=== PATIENT | male | born 1955 | race Two or more races ===

== ENCOUNTER 2022-08-01 11:47 | Outpatient (CLI) | payer OTHER | END 2022-08-01 11:55 | disposition home or self-care (01) | LOC: RAD 11:47 | PROVIDERS: ATTEND Orthopaedic Surgery | DX: M25.551 Pain in right hip (principal); M25.552 Pain in left hip; M25.561 Pain in right knee; M25.562 Pain in left knee ==

== ENCOUNTER 2022-11-07 13:30 | Inpatient (IN) | payer OTHER ==
[~2022-11-07] VITALS: Ht 182.9 cm; Wt 112.0 kg
[2022-11-07] MEDS ORDERED: AVALIDE 300-121 EACH PO (14:27)
[2022-11-07] MEDS ORDERED: CLONAZEPAM2 M1 PO (14:28)
[2022-11-07] MEDS ORDERED: NORVASC10 MG PO (14:28)
[2022-11-19] MEDS ORDERED: XARELTO10 M1 (14:49)
[2022-11-19] MEDS ORDERED: AMLODIPINE BESY10 MG (14:49)
[2022-11-19] MEDS ORDERED: IRBESARTAN-HCT1 EAC1 (14:49)
== END 2022-11-21 13:29 | disposition home or self-care (01) | DRG 470 ==
LOC: SURG 11-11 07:00 → O/R 11-16 08:21 → SURG 11-16 08:21
PROVIDERS: ADMIT Orthopaedic Surgery; ATTEND Orthopaedic Surgery
PROC: 8E0Y0CZ Robotic Assisted Procedure of Lower Extremity, Open Approach (ICD-10-PCS; 2022-11-19)
PROC: 0SRD0J9 Replacement of Left Knee Joint with Synthetic Substitute, Cemented, Open Approach (ICD-10-PCS; principal; 2022-11-19 09:45)
DX: M17.12 Unilateral primary osteoarthritis, left knee (principal); I10 Essential (primary) hypertension; Z20.822 Contact with and (suspected) exposure to COVID-19; Z96.652 Presence of left artificial knee joint

== ENCOUNTER 2023-03-03 09:29 | Emergency (ER) | payer OTHER ==
[~2023-03-03] VITALS: Ht 182.9 cm; Wt 116.6 kg
[~2023-03-03 09:29] MED LIST: AMLODIPINE BESY10 MG; AVALIDE 300-121 EACH PO; CLONAZEPAM2 M1 PO; IRBESARTAN-HCT1 EAC1; NORVASC10 MG PO; XARELTO10 M1
[2023-03-03] MEDS ORDERED: GABAPENTIN100 M2 PO (10:12)
[2023-03-03 12:35] LABS: HEMATOCRIT 45.6 % (39.0-48.0); HEMOGLOBIN 15.2 g/dL (13-16.00); MEAN CELL VOLUME 83.8 fL (80.0-100.00); MEAN CORPUSCULAR HEMOGLOBIN 27.9 pg (27.00-32.0); MEAN CORPUSCULAR HGB CONC 33.3 g/dl (32.0-36.0); PLATELET COUNT 224 K/uL (150-450); RED BLOOD COUNT 5.44 M/uL (4.00-6.00); RED CELL DISTRIBUTION WIDTH 14.5 % (11.5-14.5)
[2023-03-03 12:44] LABS: URINE APPEARANCE Clear; URINE BILIRRUBIN Negative (NEGATIVE); URINE BLOOD Negative; URINE COLOR Yellow; URINE GLUCOSE Negative (NEGATIVE); URINE LEUKOCYTE Negative; URINE NITRATE Negative; URINE PROTEIN Negative (NEGATIVE); URINE UROBILINOGEN 0.2 E.U./dl
[2023-03-03 12:47] LABS: URINE EPITHELIAL CELLS 3.3 uL (0.0-38.8); URINE RBC 10.9 uL (0.0-20.8); URINE WBC 5.2 uL (0.0-23.2)
[2023-03-03 12:56] LABS: URINE BACTERIA 2.5 uL (0.0-1933)
[2023-03-03 13:04] LABS: CALCIUM 9.6 mg/dL (8.5-10.1); CREATININE SERUM 1.01 mg/dL (0.70-1.30); GFR 73.91; POTASSIUM 3.46 mEq/L (3.5-5.1)
== END 2023-03-03 15:05 | disposition home or self-care (01) ==
LOC: ER 09:29
PROVIDERS: General Practice
DX: M54.89 Other dorsalgia (principal); R30.0 Dysuria
CPT/HCPCS: 36415; 71111; 72100; 96372; 99283; J1885

== ENCOUNTER 2023-04-21 11:15 | Outpatient (CLI) | payer OTHER ==
[~2023-04-21 11:15] MED LIST changes: +GABAPENTIN100 M2 PO
== END 2023-04-21 11:16 | disposition home or self-care (01) ==
LOC: NUCLEAR 11:15
DX: I73.9 Peripheral vascular disease, unspecified (principal)

== ENCOUNTER → 2023-04-24 09:26 | Outpatient (CLI) | payer OTHER | END | disposition home or self-care (01) | LOC: NUCLEAR 09:26 | DX: I73.9 Peripheral vascular disease, unspecified (principal) ==

== ENCOUNTER 2023-10-29 14:59 | Outpatient (CLI) | payer OTHER ==
[2023-10-29 15:44] LABS: HEMATOCRIT 44.8 % (39.0-48.0); HEMOGLOBIN 15.1 g/dL (13-16.00); MEAN CORPUSCULAR HEMOGLOBIN 28.8 pg (27.00-32.0); MEAN CORPUSCULAR HGB CONC 33.8 g/dl (32.0-36.0); PLATELET COUNT 190 K/uL (150-450); RED BLOOD COUNT 5.27 M/uL (4.00-6.00); RED CELL DISTRIBUTION WIDTH 14.4 % (11.5-14.5)
[2023-10-29 15:45] LABS: SYNOVIAL FLUID APPEARANCE HAZY; SYNOVIAL FLUID COLOR YELLOW
[2023-10-29 17:38] LABS: ERYTHROCYTE SEDIMENTATION RATE 6 mm/hr; MONONUCLEAR 18 %; POLYMORPHONUCLEAR 82 %
== END 2023-10-29 15:05 | disposition home or self-care (01) ==
LOC: LAB 14:59
PROVIDERS: ATTEND Orthopaedic Surgery
DX: D64.9 Anemia, unspecified (principal); M06.4 Inflammatory polyarthropathy; M25.48 Effusion, other site

== ENCOUNTER → 2024-03-22 | Outpatient (CLI) | payer OTHER | END | disposition home or self-care (01) | LOC: SONOGRAMA 07:06 | PROVIDERS: ATTEND Orthopaedic Surgery | DX: M25.511 Pain in right shoulder (principal); M25.512 Pain in left shoulder ==

== ENCOUNTER 2024-03-24 11:42 | Outpatient (CLI) | payer OTHER | END 2024-03-24 12:10 | disposition home or self-care (01) | LOC: RAD 11:42 | PROVIDERS: ATTEND Orthopaedic Surgery | DX: M79.672 Pain in left foot (principal); M25.562 Pain in left knee ==

== ENCOUNTER 2024-03-30 08:30 | Outpatient (CLI) | payer OTHER ==
[~2024-03-30] VITALS: Ht 182.9 cm; Wt 117.9 kg
[2024-03-30 09:04] VITALS: BP 148/74
[2024-03-30 09:35] LABS: HEMOGLOBIN 15.2 g/dL (13-16.00); MEAN CELL VOLUME 85.5 fL (80.0-100.00); MEAN CORPUSCULAR HEMOGLOBIN 29.5 pg (27.00-32.0); MEAN CORPUSCULAR HGB CONC 34.6 g/dl (32.0-36.0); PLATELET COUNT 200 K/uL (150-450); RED BLOOD COUNT 5.15 M/uL (4.00-6.00); RED CELL DISTRIBUTION WIDTH 13.9 % (11.5-14.5)
[2024-03-30 09:52] LABS: URINE APPEARANCE Clear; URINE BILIRRUBIN Negative (NEGATIVE); URINE BLOOD Negative; URINE COLOR Yellow; URINE GLUCOSE Negative (NEGATIVE); URINE KETONE Negative (NEGATIVE); URINE LEUKOCYTE Negative; URINE NITRATE Negative; URINE PROTEIN Negative (NEGATIVE); URINE UROBILINOGEN 0.2 E.U./dl
[2024-03-30 09:55] LABS: INR 1.02; PARTIAL THROMBOPLASTIN TIME 27.6 SECONDS (22.0-34.0); PROTHROMBIN TIME 11.1 SECONDS (9.0-11.5)
[2024-03-30 09:56] LABS: URINE RBC 9.8 uL (0.0-20.8)
[2024-03-30 10:05] LABS: COL EPI 142 SECONDS (82-175)
[2024-03-30 10:10] LABS: URINE BACTERIA 2.4 uL (0.0-1933); URINE EPITHELIAL CELLS 0.1 uL (0.0-38.8); URINE WBC 0.4 uL (0.0-23.2)
[2024-03-30 10:30] LABS: ALBUMIN 4.1 gm/dL (3.4-5.0); BILIRUBIN TOTAL 0.86 mg/dL (0.3-1.2); CALCIUM 9.3 mg/dL (8.5-10.1); CREATININE SERUM 0.86 mg/dL (0.70-1.30); GFR 88.7; GLOBULINA 3.7 G/DL (2.4-3.5); POTASSIUM 3.97 mEq/L (3.5-5.1); TOTAL PROTEIN 7.8 gm/dL (6.4-8.2)
== END 2024-03-30 08:40 | disposition home or self-care (01) ==
LOC: RAD 08:30
PROVIDERS: ATTEND Orthopaedic Surgery
DX: D64.9 Anemia, unspecified (principal); E88.89 Other specified metabolic disorders; D68.8 Other specified coagulation defects; N39.0 Urinary tract infection, site not specified; Z22.322 Carrier or suspected carrier of Methicillin resistant Staphylococcus aureus; E11.9 Type 2 diabetes mellitus without complications; Z76.89 Persons encountering health services in other specified circumstances; I10 Essential (primary) hypertension

== ENCOUNTER 2024-06-16 08:55 | Outpatient (CLI) | payer OTHER | END 2024-06-16 09:10 | disposition home or self-care (01) | LOC: RAD 08:55 | PROVIDERS: ATTEND Orthopaedic Surgery | DX: M25.561 Pain in right knee (principal); M99.01 Segmental and somatic dysfunction of cervical region; M99.02 Segmental and somatic dysfunction of thoracic region; M99.03 Segmental and somatic dysfunction of lumbar region; M99.04 Segmental and somatic dysfunction of sacral region; M99.05 Segmental and somatic dysfunction of pelvic region | CPT/HCPCS: 73721 ==